=== PATIENT | male | born 1955 | race Hispanic/Latino ===

== ENCOUNTER 2019-03-12 02:54 | Emergency (ER) | payer BC, OTHER ==
[2019-03-12] MEDS ORDERED: Lidocaine 1% w/Epinephrine 1:100K 20 ML VIAL ONE (03:10)
== END 2019-03-12 03:45 | disposition home or self-care (01) ==
LOC: ERS 02:54
DX: S01.112A Laceration without foreign body of left eyelid and periocular area, initial encounter (principal); S05.12XA Contusion of eyeball and orbital tissues, left eye, initial encounter; I10 Essential (primary) hypertension; G47.30 Sleep apnea, unspecified; Z79.82 Long term (current) use of aspirin; Z79.899 Other long term (current) drug therapy; W06.XXXA Fall from bed, initial encounter
CPT/HCPCS: 12011; J2001

== ENCOUNTER 2019-06-24 10:54 | Emergency (ER) | payer BC, OTHER ==
[2019-06-24 11:57] LABS: #Eosinphils 0.1 thou/uL (0.0-0.7); #Lymphocytes 1.7 thou/uL (1.20-3.40); #Monocytes 0.5 thou/uL (0.11-0.59); %Basophils 0.2 % (0.0-1.0); %Eosinophils 1.9 % (0.0-10.0); %Lymphocytes 22.7 % (21.0-51.0); %Monocytes 7.2 % (0.0-10.0); %Neutrophils 67.9 % (42.0-75.0); Hemoglobin 17.1 g/dL (14.0-18.0); Mean Corpuscular HGB CONC 32.7 g/dL (32.0-36.0); Mean Corpuscular Hemoglobin 29.5 pg (27.0-31.0); Mean Platelet Volume 8.1 fL (7.4-10.4); Platelet Count 208 thou/uL (130-400); RBC Distribution Width 13.5 % (11.5-14.5); Red Blood Cell (RBC) Count 5.79 mill/uL (4.70-6.10); White Blood Cell (WBC) Count 7.4 thou/uL (4.8-10.8)
[2019-06-24 12:22] LABS: ALT (SGPT) 20 U/L (8-55); AST (SGOT) 17 U/L (5-34); Albumin 4.6 g/dL (3.4-4.8); Alkaline Phosphatase 67 U/L (40-110); Anion Gap 11 mmol/L (10-20); BUN (Urea Nitrogen) 11 mg/dL (8.4-25.7); Bilirubin, Total 0.6 mg/dL (0.2-1.2); Calc. Creatinine Clearance 0 mL/min (70-130); Calcium 9.3 mg/dL (7.8-10.44); Carbon Dioxide 27 mmol/L (23-31); Chloride 101 mmol/L (98-107); Estimated GFR-MDRD Greater than 90; Globulin 3.5 g/dL (2.4-3.5); Glucose 105 mg/dL (80-115); Potassium 3.9 mmol/L (3.5-5.1); Protein, Total 8.1 g/dL (5.8-8.1); Sodium 135 mmol/L (136-145)
[2019-06-24] MEDS ORDERED: Diazepam 5 MG TAB ONE (13:03)
[2019-06-24] MEDS ORDERED: Morphine 4 MG/ML VIAL ONE (13:03)
[2019-06-24] MEDS ORDERED: Ketorolac Tromethamine 30 MG/ML VIAL ONE (13:04)
[2019-06-24] MEDS ORDERED: Dexamethasone 10 MG/ML VIAL ONE (13:04)
--- NOTE | 2019-06-24 13:10 | CT ---
CTA THORAX WITH CONTRAST CTA ABDOMEN WITH CONTRAST: (Computed Tomographic Angiography, chest(noncoronary) with contrast material, and image post processi ng) (Computed Tomographic Angiography, abdomen with contrast material, and image post processing) DATE: 06/24/2019. HISTORY: A 63-year-old male with back pain acutely worse. Rule out aortic dissection or rupture. TECHNIQUE: IV injection of iodinated contrast: 100 mL Isovue [id number]. Arterial phase bolus chasing technique. Scan acquisition from top of top of aortic arch to iliac crests. 3D sagittal and coronal MIP reconstructions. FINDINGS: No consolidation, pulmonary edema, pleural effusion, or pneumothorax. No aortic aneurysm, dissection , or rupture. No mediastinal or hilar lymphadenopathy. No pericardial effusion. Calcification at LAD. No evidenc e of pulmonary thromboembolism. A few small focal hypodensities on the order of 1 cm in size each at the dome of the liver, too small to characterize, and some elsewhere, including left lobe 1.5 cm hepatic segment 2, and right lobe 0. 8 cm hepatic segment 6. A 2.5 cm right renal posterior exophytic upper-mid pole cyst. No hydronephrosis. No pyelonephritis. Within the limitations of an arterial phase only scan, no other abnormality is identified involving t he kidneys, liver, pancreas, adrenals, or spleen. No obvious acute findings involving the visualized portions of small intestine and colon. No ascites or pneumoperitoneum. Thoracic and lumbar vertebral body heights are maintained. Signs of DISH in thoracic spine and lumba r spine. IMPRESSION: 1. No aortic aneurysm, dissection, or rupture. 2. No acute findings. 3. Right renal cyst. 4. Nonspecific tiny hypodensities in the liver, too small to characterize. jn[] POS: OFF
[2019-06-24] MEDS ORDERED: Iopamidol-370 76% 500 ML 1 ML ONE (15:02)
== END 2019-06-24 13:36 | disposition home or self-care (01) ==
LOC: ERS 10:54
DX: M54.5 Low back pain (principal); M54.6 Pain in thoracic spine; G89.29 Other chronic pain; I10 Essential (primary) hypertension; G47.30 Sleep apnea, unspecified; Z79.899 Other long term (current) drug therapy; Z79.82 Long term (current) use of aspirin
CPT/HCPCS: 36415; 71275; 72191; 74175; 80053; 85025; 86850; 86900; 86901; 96374; 96375; J1100; J1885; J2270; Q9967

== ENCOUNTER 2019-06-25 17:20 | Emergency (ER) | payer OTHER ==
[2019-06-25 19:07] LABS: #Lymphocytes 0.9 thou/uL (1.20-3.40); #Monocytes 1.1 thou/uL (0.11-0.59); #Neutrophils 16.4 thou/uL (1.40-6.50); %Basophils 0.1 % (0.0-1.0); %Eosinophils 0.1 % (0.0-10.0); %Lymphocytes 4.7 % (21.0-51.0); %Monocytes 5.8 % (0.0-10.0); %Neutrophils 89.4 % (42.0-75.0); Hemoglobin 16.4 g/dL (14.0-18.0); Mean Corpuscular HGB CONC 33.8 g/dL (32.0-36.0); Mean Corpuscular Volume 88.7 fL (78.0-98.0); Mean Platelet Volume 8.4 fL (7.4-10.4); Platelet Count 225 thou/uL (130-400); RBC Distribution Width 13.4 % (11.5-14.5); Red Blood Cell (RBC) Count 5.46 mill/uL (4.70-6.10); White Blood Cell (WBC) Count 18.4 thou/uL (4.8-10.8)
--- NOTE | 2019-06-25 19:14 | CT ---
CT head noncontrast HISTORY: Headache. FINDINGS: There is no evidence of acute intracranial hemorrhage or infarct. The ventricles appear nor mal in size, shape and position. There is no mass effect or shift of midline structures. Visualized sinuses remain well aerated. IMPRESSION: No acute intracranial abnormalities are demonstrated.
[2019-06-25 19:28] LABS: ALT (SGPT) 16 U/L (8-55); AST (SGOT) 15 U/L (5-34); Albumin 4.4 g/dL (3.4-4.8); Alkaline Phosphatase 59 U/L (40-110); Anion Gap 11 mmol/L (10-20); BUN (Urea Nitrogen) 21 mg/dL (8.4-25.7); Bilirubin, Total 0.4 mg/dL (0.2-1.2); Calc. Creatinine Clearance 0 mL/min (70-130); Calcium 9.4 mg/dL (7.8-10.44); Carbon Dioxide 25 mmol/L (23-31); Chloride 107 mmol/L (98-107); Estimated GFR-MDRD 86; Globulin 3.2 g/dL (2.4-3.5); Glucose 135 mg/dL (80-115); Potassium 4.2 mmol/L (3.5-5.1); Protein, Total 7.6 g/dL (5.8-8.1); Sodium 139 mmol/L (136-145)
[2019-06-25] MEDS ORDERED: Labetalol HCl 100 MG/20 ML VIAL ONE (21:05)
[2019-06-25] MEDS ORDERED: Metoclopramide HCl 10 MG/2 ML VIAL ONE (21:56)
[2019-06-25] MEDS ORDERED: diphenhydrAMINE 50 MG/ML VIAL ONE (21:56)
[2019-06-25] MEDS ORDERED: Lidocaine 1% w/Epinephrine 1:100K 20 ML VIAL ONE (22:55)
[2019-06-25 23:59] LABS: Color Of CSF Supernatant COLORLESS (Colorless); Tube # 2; Unspun CSF Color COLORLESS (Colorless)
[2019-06-26 00:12] LABS: CSF, Glucose 81 mg/dl (40-70); CSF, Protein 28 mg/dL (15-40)
[2019-06-26 00:22] LABS: CSF Source CSF; Clarity Clear (Clear); Tube # 1; Tube # 4
[2019-06-26] MEDS ORDERED: Acetaminophen 500 MG TAB ONE (00:22)
[2019-06-26] MEDS ORDERED: Magnesium 2 GM/50 ML BAG (IN WATER) ONE (00:22)
== END 2019-06-26 01:12 | disposition home or self-care (01) ==
LOC: ERS 17:20
DX: R51 Headache (principal); M54.9 Dorsalgia, unspecified; I10 Essential (primary) hypertension; Z79.899 Other long term (current) drug therapy
CPT/HCPCS: 36415; 62270; 70450; 80053; 82945; 84157; 85025; 87070; 87205; 89051; 96365; 96367; 96375; J1200; J2765; J3475

== ENCOUNTER 2022-10-03 07:22 | Emergency (ER) | payer OTHER | END 2022-10-03 08:18 | disposition left against medical advice (07) | LOC: ERS 07:22 | DX: Z53.21 Procedure and treatment not carried out due to patient leaving prior to being seen by health care provider (principal) ==